=== PATIENT | male | born 1950 | race Caucasian/White ===

== ENCOUNTER 2020-05-30 11:38 | Emergency (ER) | payer OTHER ==
[~2020-05-30] VITALS: Ht 172.7 cm; Wt 120.7 kg
[2020-05-30 11:52] VITALS: BP 120/86; Ht 172.7 cm; Wt 120.7 kg
[2020-05-30 18:26] LABS: ALKALINE PHOSPHATASE 121 U/L (46-116); ALT/SGPT 22 U/L (16-63); AST/SGOT 19 U/L (15-37); BILIRUBIN TOTAL 0.5 mg/dL (0.20-1.00); CALCIUM 9.2 mg/dL (8.5-10.1); CARBON DIOXIDE 25.3 mmol/L (21-32); CHLORIDE SERUM 104 mmol/L (98-107); CREATININE SERUM 1.2 mg/dL (0.7-1.3); GFR1 > 60 mL/min; GLUCOSE SERUM 142 mg/dL (74-106); SODIUM SERUM 137 mmol/L (136-145); TOTAL PROTEIN, SERUM 8.1 g/dL (6.4-8.2)
[2020-05-31 15:02] LABS: RED CELL DISTRIBUTION WIDTH 14.8 % (11.5-14.5)
[2020-05-31 15:03] LABS: BASOPHIL % 0.8 % (0-2); PLATELET COUNT 444 x10^3mcL (130-400)
== END 2020-05-30 14:58 | disposition home or self-care (01) ==
LOC: ED 11:38
PROVIDERS: Emergency Medicine
DX: M25.571 Pain in right ankle and joints of right foot (principal); M10.9 Gout, unspecified
CPT/HCPCS: 82962

== ENCOUNTER 2020-06-12 08:17 | Emergency (ER) | payer OTHER ==
[~2020-06-12] VITALS: Ht 177.8 cm; Wt 120.7 kg
[2020-06-12 08:36] VITALS: BP 144/84; Ht 177.8 cm; Wt 120.7 kg
[2020-06-12] MEDS ORDERED: PREDNISONE50 MG PO (09:49)
[2020-06-12] MEDS ORDERED: ACETAMINOPHEN-H1 TA1 PO (09:49)
[2020-06-12] MEDS ORDERED: VALACYCLOVIR1 GM PO (09:49)
== END 2020-06-12 10:12 | disposition home or self-care (01) ==
LOC: ED 08:17
DX: B02.9 Zoster without complications (principal); I10 Essential (primary) hypertension; E11.9 Type 2 diabetes mellitus without complications; E78.00 Pure hypercholesterolemia, unspecified